=== PATIENT | male | born 1935 | race Caucasian/White ===

== ENCOUNTER → 2019-02-10 | Outpatient (CLI) | payer MEDICARE, BC ==
[~2019-02-10] MED LIST: ATIVAN0.5 MG PO; CELEXA20 MG PO; CLONIDINE0.1 PO; ESCITALOPRAM OX10 MG PO; FIBERCON625 M1 PO; HYDROCHLOROTH12.5 M1 PO; LIPITOR20 MG PO; PLAVIX 75 MG TA75 M1 PO; RANEXA500 MG PO; ZESTRIL20 MG PO
--- NOTE | 2019-02-10 14:43 | 2DMMODE ---
[place] [address] 2 D/M-MODE ECHOCARDIOGRAM Name: JERONIMO RODRIGUEZ Room: [facility]#: [id number] Admission: 02/10/19 Attend Phys: Rohan Baez, Discharge: Date of : 39 Date of Service: 02/10/19 1443 Report #: [id number] THIS REPORT FOR: //name// APPROVED REPORT Study performed: 02/10/2019 13:16:44 EXAM: Comprehensive 2D, Doppler, and color-flow Echocardiogram Patient Location: Out-Patient BSA: 2.05 HR: 67 bpm BP: 150/70 mmHg Other Information Study Quality: Good Indications Congestive Heart Failure 2D Dimensions IVSd: 12.17 (7-11mm) LVOT Diam: 20.54 (18-24mm) LVDd: 35.37 mm PWd: 10.93 (7-11mm) Ascending Ao: 28.86 (22-36mm) LVDs: 21.88 (25-40mm) Aortic Root: 29.43 mm Volumes Left Atrial Volume (Systole) LA ESV Index: 23.90 mL/m2 Aortic Valve AoV Peak Gilmar.: 1.18 m/s AO Peak Gr.: 5.56 mmHg LVOT Max P.41 mmHg AO Mean Gr.: 2.98 mmHg LVOT Mean P.27 mmHg LVOT Max V: 1.05 m/s AO V2 VTI: 22.47 cm LVOT Mean V: 0.70 m/s VANNESA (VTI): 3.06 cm2 LVOT V1 VTI: 20.74 cm Mitral Valve E/A Ratio: 0.73 MV Decel. Time: 279.71 ms MV E Max Gilmar.: 0.66 m/s MV PHT: 81.12 ms MVA (PHT): 2.71 [place] [address] 2 D/M-MODE ECHOCARDIOGRAM Name: JERONIMO RODRIGUEZ Room: [facility]#: [id number] Admission: 02/10/19 Attend Phys: Rohan Baez, Discharge: Date of : 39 Date of Service: 02/10/19 1443 Report #: [id number] TDI E/Lateral E': 5.50 E/Medial E': 7.33 Medial E' Gilmar.: 0.09 m/s Lateral E' Gilmar.: 0.12 m/s Pulmonary Valve PV Peak Gilmar.: 1.10 m/s PV Peak Gr.: 4.84 mmHg Tricuspid Valve RAP Estimate: 5.00 mmHg TR Peak Gr.: 28.66 mmHg RVSP: 33.66 mmHg PA Pressure: 33.66 mmHg Left Ventricle The left ventricle is normal size. There is normal LV segmental wall motion. There is normal left ventricular wall thickness. Left ventricular systolic function is normal. LVEF is 55-60%. Grade I - abnormal relaxation pattern. Right Ventricle The right ventricle is normal size. The right ventricular systolic function is normal. Atria The left atrium size is normal. The right atrium size is normal. Aortic Valve Mild aortic valve sclerosis. No aortic regurgitation is present. There is no aortic valvular stenosis. Mitral Valve Mild mitral annular calcification. Mild mitral regurgitation. No evidence of mitral valve stenosis. Tricuspid Valve The tricuspid valve is normal in structure. Mild tricuspid regurgitation. No pulmonary hypertension. Pulmonic Valve The pulmonary valve is normal in structure. There is no pulmonic valvular regurgitation. Great Vessels The aortic root is normal in size. IVC [place] [address] 2 D/M-MODE ECHOCARDIOGRAM Name: JERONIMO RODRIGUEZ Room: [facility]#: [id number] Admission: 02/10/19 Attend Phys: Rohan Baez, Discharge: Date of : 39 Date of Service: 02/10/19 1443 Report #: [id number] collapses >50% with inspiration. Pericardium There is no pericardial effusion. <Conclusion> The left ventricle is normal size. There is normal left ventricular wall thickness. Left ventricular systolic function is normal. LVEF is 55-60%. Grade I - abnormal relaxation pattern. Mild aortic valve sclerosis. There is no aortic valvular stenosis. Mild tricuspid regurgitation. No pulmonary hypertension. Mild mitral regurgitation. IVC is normal in size and collapses >50% with inspiration. <ELECTRONICALLY SIGNED> By: Víctor Morgan MD, FACC 02/10/19 1443 1443 1443 Víctor Morgan MD, FACC /INF
== END ==
LOC: M.CRD 13:07
DX: I08.3 Combined rheumatic disorders of mitral, aortic and tricuspid valves (principal); I11.0 Hypertensive heart disease with heart failure; I50.31 Acute diastolic (congestive) heart failure; Z88.8 Allergy status to other drugs, medicaments and biological substances; Z88.1 Allergy status to other antibiotic agents; Z88.2 Allergy status to sulfonamides